=== PATIENT | female | born 1960 | race African-American/Black ===

== ENCOUNTER 2022-06-23 23:25 | Emergency (ER) | payer SELFPAY ==
[~2022-06-23] VITALS: Ht 162.6 cm; Wt 82.0 kg
[2022-06-24] MEDS ORDERED: ACETAMINOPHEN 500MG TABLET PO ONE (02:30)
[2022-06-24] MEDS ORDERED: ACET-2708 MT (03:48)
[2022-06-24 04:00] VITALS: BP 102/78
== END 2022-06-24 04:00 | disposition home or self-care (01) ==
LOC: ER 23:25
DX: S62.396A Other fracture of fifth metacarpal bone, right hand, initial encounter for closed fracture (principal); I10 Essential (primary) hypertension; E11.9 Type 2 diabetes mellitus without complications; Z98.49 Cataract extraction status, unspecified eye; W17.89XA Other fall from one level to another, initial encounter; Y93.89 Activity, other specified; Y92.018 Other place in single-family (private) house as the place of occurrence of the external cause
CPT/HCPCS: 73130; 99283